=== PATIENT | male | born 1930 | race Caucasian/White ===

== ENCOUNTER → 2017-11-12 | Outpatient (CLI) | payer MEDICARE ==
[~2017-11-12] MED LIST: AEC81 PO; ATOR10 PO; DOXY100C2 PO; ERGO400C PO; ISOS30TA6 PO; METO-391 PO; METO-409 PO; MULT1CAP32 PO; OMEP20CA10 PO; SILO8CAP PO
== END ==
LOC: RAH 09:28
PROVIDERS: ATTEND Dermatology
DX: J90 Pleural effusion, not elsewhere classified (principal); J18.9 Pneumonia, unspecified organism
CPT/HCPCS: 71046

== ENCOUNTER → 2017-11-16 | Outpatient (CLI) | payer MEDICARE | END | disposition home or self-care (01) | LOC: SHCH 08:39 | PROVIDERS: ATTEND Internal Medicine Cardiovascular Disease | DX: I50.9 Heart failure, unspecified (principal); I48.91 Unspecified atrial fibrillation; I27.20 Pulmonary hypertension, unspecified; Z95.0 Presence of cardiac pacemaker | CPT/HCPCS: 93306 ==